=== PATIENT | male | born 1960 | race Caucasian/White ===

== ENCOUNTER → 2018-02-12 12:30 | Outpatient (CLI) | payer OTHER, SELFPAY ==
--- NOTE | 2018-02-12 12:33 | US_ITS ---
STUDY: ABDOMINAL ULTRASOUND -left UPPER QUADRANT REASON FOR VISIT: Male, 57 years old. History of mononucleosis. TECHNIQUE: Ultrasound evaluation of the left upper quadrant was performed with real-time and static armstrong-scale imaging. TECHNICAL QUALITY: Adequate. COMPARISON: None. FINDINGS: Spleen: The spleen measures 8.7 cm x 2.6 cm x 2.7 cm. It is of homogeneous echotexture. No focal abnormality is seen. Left Kidney: Normal size of the left kidney. The left kidney measures 10.6 cm x 5.75 x 5.4 cm. Normal renal cortex. The left cortex measures 1.3 cm. There is no demonstrated renal mass or cyst. There is no left hydronephrosis. US/Spleen IMPRESSION: Unremarkable ultrasound of the left upper quadrant. Electronically Signed: Daniel Albarran MD at 14:02 EDT Tel [phone], Service support ,
== END ==
PROVIDERS: Family Provider Internal Medicine; PCP Internal Medicine; Visit Provider Internal Medicine
DX: R16.1 Splenomegaly, not elsewhere classified (principal)
CPT/HCPCS: 76705

== ENCOUNTER → 2019-09-21 08:43 | Outpatient (CLI) | payer SELFPAY ==
[2019-09-21 08:43] VITALS: BMI 22.1
--- NOTE | 2019-09-21 08:50 | RAD_ITS ---
STUDY: X-RAY CHEST REASON FOR EXAM: Male, 59 years old. TB clearance. TECHNIQUE: Single AP portable view of the chest. COMPARISON: 09/29/2017. FINDINGS: The lungs are clear and expanded. There is no demonstrated pleural abnormality. Normal size heart. Normal mediastinum and sheree. Normal visualized pulmonary arteries. Normal visualized aortic arch and descending thoracic aorta. Normal visualized thoracic spine. There is degenerative osteoarthritis of the bilateral shoulders. Postoperative changes with 2 visualized fixation screws at the left humeral head. There is no demonstrated abnormality of the visualized soft tissue structures of the upper abdomen. RAD/Chest 1 View IMPRESSION: No acute cardiopulmonary disease. Electronically Signed: Yojana Van MD at 0:36 EDT , Service support ,
== END ==
PROVIDERS: Family Provider Internal Medicine; PCP Internal Medicine; Referring Provider Physician Assistant; Visit Provider Physician Assistant
DX: Z11.1 Encounter for screening for respiratory tuberculosis (principal)
CPT/HCPCS: 71045

== ENCOUNTER 2019-10-27 07:30 | Emergency (ER) | payer OTHER, SELFPAY ==
[2019-09-21 08:43] VITALS: BMI 22.1
[2019-10-27 07:31] VITALS: BP 155/97; PULSE 98; RESP 16; TEMP 37.1; O2SAT 98; BMI 22.7
[2019-10-27 07:34] VITALS: BP 155/97; PULSE 98; RESP 16; TEMP 37.1; O2SAT 98
--- NOTE | 2019-10-27 07:39 | RAD_ITS ---
STUDY: X-RAY CHEST REASON FOR EXAM: Male, 59 years old. Fever and chills TECHNIQUE: PA and lateral views of the chest. COMPARISON: 09/21/2019 FINDINGS: The lungs are clear and expanded. There is no demonstrated pleural abnormality. Normal size heart. Normal mediastinum and sheree. Normal visualized pulmonary arteries. Normal visualized aortic arch and descending thoracic aorta. Normal visualized thoracic spine. Normal visualized ribs, clavicles, and shoulders. There is no demonstrated abnormality of the visualized soft tissue structures of the upper abdomen. RAD/Chest PA and Lateral IMPRESSION: Normal x-ray examination of the chest. Electronically Signed: Waqar Alicea MD at 9:14 EST , Service support ,
--- NOTE | 2019-10-27 07:40 | ED.VIS.GEN ---
History of Present Illness Chief Complaint: Fever Informant: Patient Onset: Yesterday Context: Gradual Onset Timing: Continuous Current Severity: Moderate Maximum Severity: Moderate Narrative: The patient is a 59-year-old male who is otherwise healthy the presents to the emergency department with fever. The patient has had some upper respiratory symptoms for the past 2 weeks. He states he has had some nasal drainage and mild cough. He states that 2 days ago, he thought that he may been getting bronchitis. Today however, he has not had cough and was feeling improved. When he woke this morning, he had some chills and myalgias. 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 He states that he took his temperature at work and it was 100.5. He did take Motrin. He was exposed to adenovirus within the past week. Prior similar symptoms: No Recent Illness/Hospitalization: No Past Medical History - Allergies and Home Meds Allergies/Adverse Reactions: Allergies metoclopramide HCl [From Reglan] Allergy (Verified 10/27/19 07:33) Hives Primary Care Physician: Sommer Saunders DO [Primary Care Provider] - Prior records reviewed: Yes Past Medical History: None Surgical History: no surgical history Smoking Status: Current some day smoker Review of Systems General: Reports: Fever. Denies: Chills, Sweats Eyes: Denies: Visual changes - bilaterally, Diplopia ENT: Denies: Rhinorrhea, Sore throat Cardiovascular: Denies: Chest pain, Palpitations Respiratory: Reports: Cough. Denies: Dyspnea, Dyspnea on exertion Gastrointestinal: Denies: Abdominal pain, Nausea, Vomiting, Diarrhea, Melena, Hematochezia Genitourinary: Denies: Dysuria, Hematuria, Frequency Musculoskeletal: Denies: Back pain, Extremity Pain Skin: Denies: Rash, Wounds Neurological: Denies: Headache, Weakness, Numbness Physical Exam Vital Signs/Narrative: Vital Signs Temp Pulse Resp BP Pulse Ox 10/27/19 07:34 98.7 F 98 16 155/97 H 98 10/27/19 07:31 98.7 F 98 16 155/97 H 98 Inital Vital Signs reviewed: Yes General: Well nourished, Well developed, No Acute Distress Head: Normocephalic, Atraumatic Eyes: Perrl, EOMI ENT: Moist mucous membranes, No rhinorrhea Neck: Supple, Nontender Cardiovascular: Regular rate, Regular rhythm, No murmurs Respiratory: No distress, CTA bilaterally, Chest nontender Abdomen: Soft, Nontender, Nondistended, Normal bowel sounds Back: Nontender, Normal Inspection Extremities: Nontender, No edema Skin: Normal color, No rash Neurological: Alert, Oriented x3, Cranial nerves II-XII grossly intact, Normal Strength, Normal Sensation Psychological: Normal affect, Normal Mood Diagnostic/Tx/Re-eval Chest X-Ray - ED: 2 View, Read by ED Physician, Normal, Heart, Lungs, Mediastinum, Bony Structures - Medical Decision Making The patient has had upper respiratory symptoms for just over 2 weeks. Today, he had a fever. He is well-appearing. He is afebrile here. He has no hypoxia or tachypnea. His lungs are clear. Chest x-ray was obtained which does not show any focal infiltrative process. His influenza testing was also negative. Given the duration of his symptoms and the fact he now has fever, I am going to cover him for secondary bacterial cause. My suspicion is that this is likely a sinusitis. He will be started on Augmentin. I do feel that he is safe for outpatient therapy and he is comfortable with this plan of care. Impression 1. Acute sinusitis ED Disposition - Plan for ED Patient: Instructions: BRONCHITIS, Antiobiotic Treatment (Adult) Prescriptions: Amox/Clavulanate Tablet [Augmentin Tablet] 875 mg PO Q12H #20 tab Prescription Printed Referrals: Sommer Saunders DO [Primary Care Provider] -
[2019-10-27] MEDS: Amox/Clavulanate 875 MG Tablet PO (08:25)
== END 2019-10-27 08:26 | disposition home or self-care (01) ==
LOC: ED 07:45
PROVIDERS: Emergency Provider Emergency Medicine; Family Provider Internal Medicine; PCP Internal Medicine
DX: J01.90 Acute sinusitis, unspecified (principal); F17.200 Nicotine dependence, unspecified, uncomplicated; Z88.8 Allergy status to other drugs, medicaments and biological substances; Z79.82 Long term (current) use of aspirin
CPT/HCPCS: 71046; 87804; 99283

== ENCOUNTER 2020-07-03 08:16 | Observation (INO) | payer OTHER, SELFPAY ==
[2020-01-18 08:43] VITALS: BMI 22.7
[2020-07-03] VITALS (13 sets, daily range): BP systolic 120–163; BP diastolic 75–100; PULSE 64–171; RESP 16–18; TEMP 36.3–37; O2SAT 94–98; BMI 23.3; BMI 22.4; BMI 63.2
--- NOTE | 2020-07-03 08:38 | EKG12_ITS ---
Test Reason : PALPS Blood Pressure : / mmHG Vent. Rate : 115 BPM Atrial Rate : 115 BPM P-R Int : 132 ms QRS Dur : 082 ms QT Int : 308 ms P-R-T Axes : 069 067 039 degrees QTc Int : 426 ms Sinus tachycardia Possible Right atrial enlargement Borderline ECG Confirmed by KRISTIN COULTER, MATT ([id number]), subeditor BUZZ RADFORD ([id number]) on 07/09/2020 9:10:26 AM Referred By: DC Confirmed By:MATT FOSTER MD
[2020-07-03 08:46] LABS: Absolute Lymphocyte Count 2.09 X10^3/uL (0.83-4.51); Absolute Neutrophil Count 7.2 X10^3/uL (2.0-7.7); Basophil# 0.06 X10^3/uL; Basophil% 0.6 % (0-1); Eosinophil# 0.17 X10^3/uL; Eosinophils% 1.6 % (0-5); Hematocrit 52.7 % (40-54); Lymphocyte # 2.09 X10^3/ul (4.0); Lymphocyte % 19.3 % (19-41); Mean Corp Hgb Conc 36.2 g/dL (32-36); Mean Corpuscular Hgb 33.8 pg (27.0-32.0); Mean Corpuscular Volume 93.3 fL (80-94); Mean Platelet Vol. 9.1 fl (6.2-12.0); Monocyte# 1.25 X10^3/uL; Monocyte% 11.6 % (0-10); NRBC Flagged by Analyzer 0 % (0-5); Neutrophil # 7.19 X10^3/uL (2.7-7.7); Neutrophil % 66.4 % (47-70); Platelet Count 239 K/mm3 (150-450); RBC Distribution Width CV 14.2 % (11.6-14.6); RBC Distribution Width SD 48.3 fl (35.1-43.9); Red Blood Count 5.65 M/mm3 (4.6-6.2); White Blood Count 10.8 K/mm3 (4.4-11.0)
[2020-07-03 08:48] LABS: Hemoglobin 19.1 g/dL (13.0-16.5)
[2020-07-03 08:56] LABS: Partial Thromboplast Time 27.3 Seconds (24.1-36.2); Prothrombin Time (Protime)PT. 12.4 SECONDS (11.7-14.9)
[2020-07-03] MEDS: 0.9% Normal Saline 1,000 ML 1000 ML IV (08:56)
[2020-07-03] MEDS: Aspirin 81 MG TAB.CHEW 324 MG PO (08:57)
--- NOTE | 2020-07-03 09:00 | RAD_ITS ---
STUDY: X-RAY CHEST REASON FOR EXAM: Male, 60 years old. Chest pain, palpitations TECHNIQUE: Single AP portable view of the chest. COMPARISON: Comparison is made with prior examination dated 10/27/2019. FINDINGS: EKG electrodes are seen. The lungs are clear and expanded. There is no demonstrated pleural abnormality. Normal size heart. Normal mediastinum and sheree. Normal visualized pulmonary arteries. Normal visualized aortic arch and descending thoracic aorta. Normal visualized thoracic spine. Normal visualized ribs, clavicles, and shoulders. There is no demonstrated abnormality of the visualized soft tissue structures of the upper abdomen. RAD/Chest 1 View (Portable) IMPRESSION: Normal x-ray examination of the chest. Electronically Signed: Daniel Albarran, at 9:34 EDT , Service support ,
[2020-07-03 09:07] LABS: Anion Gap 7 (5-15); BUN 16 mg/dL (7-18); BUN/Creat Ratio 16.4 RATIO (10-20); Calcium,Total 9.2 mg/dL (8.5-10.1); Chloride 104 mmol/L (98-107); Creatinine, Serum 0.97 mg/dL (0.70-1.30); EST Glomerular Filtration Rate 84 mL/min (>60); Est Glom Filt Rate - Afr Amer 102 mL/min (>60); Estimated Creatinine Clearance 74.91 ml/min; Glucose 129 mg/dL (74-106); Magnesium 1.9 mg/dL (1.6-2.6); Potassium 4.3 mmol/L (3.5-5.1); Sodium Level 136 mmol/L (136-145); Thyroid Stim Hormone (TSH) 2.14 uIU/mL (0.358-3.74)
--- NOTE | 2020-07-03 09:46 | ED.DCSUM_ITS ---
- ER Visit Summary Date of Service: 07/03/20 Chief Complaint: Palpitations History of Present Illness: The patient is a 60 M who presents with palpitations that started at 6 AM. By the time I saw him, they had resolved. He had these months ago, but they had resolved after about 15 minutes. No other symptoms like chest pain or shortness of breath. He takes aspirin daily. He smokes cigars, but does not inhale. He uses erectile dysfunction medication, last use was last night. Physical Examination: Afebrile and vital signs unremarkable except for heart rate of 109. Heart is regular. Lungs clear. Abdomen soft. Skin normal. Test Results: EKG shows sinus tach at 115. Hemoglobin 19.1, glucose 129, coags and troponin normal. Magnesium and TSH normal. Chest x-ray normal. Emergency Department Course and Treatment: Patient was placed on a monitor. Treated with aspirin. Work-up as above was unremarkable. He was discussed with cardiology who advised admission for rule out, echo, and stress test. [facility] list [facility] contacted for further care. On reevaluation, the patient remains in sinus rhythm, normal rate, stable vitals. Treatment Plan: As above Disposition: PCU Impression: New onset atrial fibrillation This note was generated with [employer] dictation software. It may contain incorrect words, spelling, and punctuation that were not noted in review of the chart prior to signing ED Disposition - Plan for ED Patient: Referrals: Sommer Saunders DO [Primary Care Provider] -
--- NOTE | 2020-07-03 10:01 | PCM.HP.STD ---
Problem List (1) New onset A. fib with RVR Status: Acute (2) Tobacco abuse Status: Chronic History of Present Illness Date of Admission: 07/03/20 Chief Complaint: Palpitation, irregular heartbeats. The patient is a 60 year old M with no significant past medical history presented to the emergency room because of palpitation and irregular heartbeats. Symptoms started at 6 AM this morning after he woke up, felt that his heart is beating fast and irregular and he checked his pulse which was also fast and irregular and this was associated with not feeling well and fatigue. There was no aggravating or relieving factors. He mentioned that he took Viagra 25 mg last night. He went to work, continued to have this palpitation with irregular heartbeats and fatigue and he decided to come to the emergency department for evaluation. He denied associated shortness of breath, chest pain, dizziness, lightheadedness, syncope or presyncope. Upon arrival to the emergency department, patient went back into sinus rhythm with a heart rate of 110. He was in A. fib with RVR earlier. EKG revealed no acute segment changes. His routine blood work was remarkable for hemoglobin of 19.1, otherwise normal. Serum potassium and magnesium were normal. TSH was normal. Troponin was negative. Chest x-ray showed no acute findings. He is being admitted for new onset A. fib with RVR, converted back to sinus rhythm, for evaluation and treatment. Past Medical History Past Medical History (Chronic Problems): Chronic Problems (Last Updated 07/03/20 @ 10:[address] Edenilson Watts MD) Alcohol abuse (Chronic) Tobacco abuse (Chronic) Medical History: Medical History (Last Updated 07/03/20 @ 10:[address] Edenilson Watts MD) BPH (benign prostatic hyperplasia) N40.0 Erectile dysfunction N52.9 IBS (irritable bowel syndrome) K58.9 Psoriasis L40.9 Allergies metoclopramide HCl [From Reglan] Allergy (Verified 10/27/19 07:33) Hives Home Medications: Ambulatory Orders Medication Instructions Recorded aspirin 81 mg tablet,delayed 81 mg PO QDAY 11/24/17 release Surgical History: - - Ganglion cyst removal. Psychiatric History: No pertinent psych hx Lives: Spouse/ Significant Other Smoking Status: Current every day smoker Tobacco Use: Cigars Alcohol: Heavy Drugs: None - *Family History Maternal Family History: Family History (Last Reviewed 06/03/19 @ 10:23 by Faiza Cantu) Father CAD (coronary artery disease) Mother Diabetes History Items: - - Congestive heart failure. Paternal Family History: Family History (Last Reviewed 06/03/19 @ 10:23 by Faiza Cantu) Father CAD (coronary artery disease) Mother Diabetes History Items: Heart Disease, - - Father at age of 50 because of massive heart attack. Review of Systems Constitutional: Reports: Fatigue. Denies: Anorexia, Chills, Fever, Weakness Eyes: Denies: Blurred vision, Double vision, Drainage, Redness HEENT: Denies: Difficulty Hearing, Ear Pain, Eye Pain, Nasal Congestion, Sore Throat Cardiovascular: Reports: Palpitations. Denies: Chest Pain, Chest Pressure, Chest Tightness, Heaviness, Light Headedness, Syncope Respiratory: Denies: Cough, Hemoptysis, Pleuritic Pain, Shortness of Breath, Sputum production, Wheezing Gastrointestinal: Denies: Abdominal Pain, Constipation, Diarrhea, Nausea, Vomiting Genitourinary: Denies: Dysuria, Frequency, Hematuria Musculoskeletal: Denies: Arm Pain, Back Pain, Foot Pain Skin: Denies: Dryness, Rash Neurological: Denies: Balance problems, Blurred vision, Double vision, Change in Speech, Slurred speech, Confusion, Headaches, Incoordination, Numbness Psychiatric: Denies: Anxiety, Depression Endocrine: Denies: Change in Body Habitus, Polydipsia, Polyuria VTE Information - Inpt Only VTE Present on Admission: No VTE Mechan Device Prophylaxis: None VTE Pharm Prophylaxis ordered?: Yes Patient Problems: Active and Suspected Problems (Last Updated 07/03/20 @ 10:[address] Edenilson Watts MD) New onset A. fib with RVR (Acute) - Physical Exam Vitals/I&O's: Vital Signs Temp Pulse Resp BP Pulse Ox 97.4 F L 109 H 16 123/98 H 97 07/03/20 08:18 07/03/20 08:31 07/03/20 08:31 07/03/20 08:31 07/03/20 08:31 Oxygen Delivery Method Room Air Weight: 145 lb Body Mass Index (BMI) 23.3 General: Alert, Oriented x3, Cooperative, No apparent distress HEENT: Atraumatic, PERRLA, EOMI, Normocephalic Oral: Moist Mucosa, No Gingival or Mucosal Lesions/ Ulcerations Neck: Supple, No JVD, Negative Carotid Bruits, Trachea Midline, Thyroid Normal Size and Texture Lungs: Clear to auscultation, Normal air movement, No rhonchi, No wheeze, No rales Cardiovascular: Regular rate, Regular Rhythm, Normal S1, Normal S2, PMI Normal, Tachycardic Abdomen: Bowel Sounds Present, Soft, Non Tender, Non-Distended, No Hepato-splenomegaly Extremities: No clubbing, No cyanosis, No edema Skin: No rashes, No breakdown Lymphatic: No Cervical, Supraclavicular, or Inguinal Adenopathy Neurological: Cranial nerves II-XII grossly intact, Motor Exam 5/5 strength throughout Psych/Mental Status: Normal Affect, Appropriate, Alert and oriented to time, place, person, mood and affect Laboratory Results 07/03/20 08:29: WBC 10.8, RBC 5.65, Hgb 19.1 H*, Hct 52.7, MCV 93.3, MCH 33.8 H, MCHC 36.2 H, RDW Std Deviation 48.3 H, RDW Coeff of Maddi 14.2, Plt Count 239, MPV 9.1, Immature Gran % (Auto) 0.500, Neut % (Auto) 66.4, Lymph % (Auto) 19.3, [place] % (Auto) 11.6 H, Eos % (Auto) 1.6, Baso % (Auto) 0.6, Absolute Neuts (auto) 7.2, Absolute Lymphs (auto) 2.09, Nucleated RBC % 0, Diff Path Review March07/03/20 08:29: PT 12.4, INR 1.0, APTT 27.3 07/03/20 08:29: Sodium 136, Potassium 4.3, Chloride 104, Carbon Dioxide 25.0, Anion Gap 7, BUN 16, Creatinine 0.97, Estim Creat Clear Calc 74.91, Est GFR (MDRD) Af Amer 102, Est GFR (MDRD) Non-Af 84, BUN/Creatinine Ratio 16.4, Glucose 129 H, Calcium 9.2, Magnesium 1.9, Troponin I < 0.015, TSH 2.14 Clinical Impression(s) from Imaging Studies Chest X-Ray 07/03/20 09:00 IMPRESSION: Normal x-ray examination of the chest. Electronically Signed: Daniel Albarran, at 9:34 EDT , Service support , Assessment/Plan All Active Problems (Last Updated 07/03/20 @ 10:[address] Edenilson Watts MD) New onset A. fib with RVR (Acute) This is a 60 years old male patient presented to the emergency room because of palpitation and irregular heartbeats, found to have new onset A. fib with RVR and he is being admitted for evaluation. #1 new onset A. fib with RVR: Converted back to sinus rhythm, now in sinus tachycardia, heart rate has been in the 110s. EKG reviewed, no acute segment changes, troponin is negative. Patient is a heavy smoker, alcohol drinker and he has family history of premature CAD, father because of massive heart attack at age of 50. Serum potassium and magnesium were normal as well as TSH. His [id number] score for atrial fibrillation is 0, no indication for anticoagulation. Plan: Admit to PCU, cardiac monitoring, serial cardiac enzymes, 2D echocardiogram, start metoprolol 25 mg p.o. twice daily for rate control, start baby aspirin, fasting lipid profile, gentle IV fluids for hydration, nuclear stress test tomorrow morning if cardiac enzymes are negative, repeat CBC and BMP tomorrow morning. #2 polycythemia: Hemoglobin is 19.1 g/dL. No signs of dehydration. This likely due to chronic smoking and hypoxia. #3 tobacco abuse: NicoDerm patch if desired. #4 alcohol abuse: Patient drinks 3-4 beers every day. No evidence of alcohol withdrawal. Plan: Folic acid, thiamine, multivitamins. #5 DVT prophylaxis: Subcu Lovenox. This note was generated with [employer] dictation software. It may contain incorrect words, spelling, and punctuation that were not noted in checking the note before signing. Inpatient E&M: 01562 Init Hosp L2
--- NOTE | 2020-07-03 10:07 | NURSING ---
PCU NEW ONSET AFIB WITH RVR MILI
--- NOTE | 2020-07-03 10:51 | ECHOD_ITS ---
Reason For Study: AFIB Procedure This was a 2D Doppler, Color Flow transthoracic echocardiogram. The study was technically difficult. Exam performed portable in patient room. Left Ventricle Normal LV size. Left ventricular systolic function is normal. The estimated ejection fraction is 55 %. No evidence for diastolic dysfunction. No regional wall motion abnormalities noted. Right Ventricle Normal RV size. Normal systolic function. Atria Normal left atrium. Normal right atrium. No doppler evidence for ASD. Mitral Valve There is no mitral annular calcification. Mild diffuse mitral valve thickening. Mild (1+) mitral valve insufficiency. Tricuspid Valve Normal tricuspid valve. Mild tricuspid valve insufficiency. Right ventricular systolic pressure estimated to be 25 mmHg. Aortic Valve Trisinus/trileaflet aortic valve. Normal aortic valve. Pulmonic Valve The pulmonic valve is not well visualized. Great Vessels Normal sized aortic root. Pericardium/Pleural No pericardial effusion. MMode/2D Measurements & Calculations LVIDd: 4.1 cm IVSd: 1.2 cm Ao root diam: 3.3 cm LVIDs: 2.8 cm LVPWd: 1.2 cm RVDd: 4.0 cm FS: 32.3 % LAV(MOD-bp): 34.6 ml LVAd ap4: 26.4 cm2 SV(MOD-sp4): 46.3 ml LAV(MOD-bp) Indexed: 19.9 ml/m2 EDV(MOD-sp4): 73.6 ml LAV(MOD-sp2): 41.5 ml EDV(sp4-el): 77.4 ml LAV(MOD-sp4): 28.5 ml LVAs ap4: 14.3 cm2 ESV(MOD-sp4): 27.3 ml ESV(sp4-el): 28.0 ml EF(MOD-sp4): 62.9 % EF(sp4-el): 63.8 % SV(sp4-el): 49.3 ml LA A4 area: 12.5 cm2 LA dimension(2D): 3.0 cm RA A4 area: 13.0 cm2 Time Measurements MV dec time: 0.19 sec Doppler Measurements & Calculations MV E max henrique: 60.4 cm/sec Ao V2 max: 89.8 cm/sec LV V1 max: 76.3 cm/sec MV A max henrique: 57.2 cm/sec Ao max P.2 mmHg LV V1 max P.3 mmHg MV E/A: 1.1 PA V2 max: 73.0 cm/sec PI end-d henrique: 82.0 cm/sec TR max henrique: 234.5 cm/sec TR max P.1 mmHg Interpretation Summary The study was technically difficult. Left ventricular systolic function is normal. The estimated ejection fraction is 55 %. Mild diffuse mitral valve thickening. Mild (1+) mitral valve insufficiency. Mild tricuspid valve insufficiency. Right ventricular systolic pressure estimated to be 25 mmHg. No evidence for diastolic dysfunction. Ordering Physician: Edenilson Watts Referring Physician: INESSA ZHAO Performed By: Meri Her, RIVERA, RVT
[2020-07-03] MEDS: 0.9% Normal Saline 1,000 ML 76 ML IV (11:19)
[2020-07-03] MEDS: Metoprolol Tartrate 25 MG Tablet PO ×2 (11:22→21:17)
[2020-07-03] MEDS: Folic Acid 1 MG Tablet PO ×2 (11:22→16:23)
[2020-07-03 11:31] LABS: Cholesterol 213 mg/dL (200); High Density Lipoprotein 64 mg/dL; Triglycerides 68 mg/dL; Very Low Density Lipoprotein 14 mg/dL (5-40)
[2020-07-03] MEDS: Thiamine Hydrochloride 100 MG Tablet PO (16:23)
--- NOTE | 2020-07-03 17:42 | PCM.CONS.C ---
Problem List (1) New onset A. fib with RVR Status: Acute (2) Tobacco abuse Status: Chronic (3) Alcohol abuse Status: Chronic (4) Polycythemia Status: Acute Reason for Consult Date of Consultation: 07/03/20 History of Present Illness: The patient is a 60 year [id number] white male who is referred for evaluation of atrial fibrillation with rapid ventricular response. 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 He states he noted earlier today that his heartbeat did not feel right, it felt fast at times, and he did not feel well in general. He states that he eventually hooked himself up to a transfer car operator drier and then subsequently with his colleagues hooked himself up to the twelve-lead ECG. He was noted to be in atrial fibrillation with rapid ventricular response. He was eventually brought to [facility] emergency department for further evaluation and care. He notes he had spontaneously converted to sinus rhythm. During his episode he denied any ongoing chest discomfort other than the sensation of his heartbeats. He did not have any issues of acute shortness of breath or dyspnea. He has denied orthopnea or PND or peripheral pitting edema. There is been no near syncope or syncope. He states he had a similar episode in March of this year that lasted potentially 15 hours. He is not sure if he has had other episodes in the past. He states he has undergone noninvasive cardiovascular evaluation in the past which is been unremarkable. He had cardiac enzymes today which have remained negative thus far. His ECG demonstrated sinus rhythm. His ECGs he brought with him demonstrate atrial fibrillation with RVR. His chest x-ray was reported with no acute cardiopulmonary disease process. He has had a transthoracic echocardiogram performed. The results are as noted below. [] Past Medical History Allergies/Adverse Reactions: Allergies metoclopramide HCl [From Reglan] Allergy (Verified 10/27/19 07:33) Hives Home Medications: Ambulatory Orders Medication Instructions Recorded aspirin 81 mg tablet,delayed 81 mg PO DAILY 11/24/17 release Past Medical History (Chronic Problems): Chronic Problems (Last Updated 07/03/20 @ 10:[address] Edenilson Watts MD) Alcohol abuse (Chronic) Tobacco abuse (Chronic) Surgical History: - - Ganglion cyst removal. Psychiatric History: No pertinent psych hx - *Family History Maternal Family History: Family History (Last Reviewed 06/03/19 @ 10:23 by Faiza Cantu) Father CAD (coronary artery disease) Mother Diabetes History Items: - - Congestive heart failure. Paternal Family History: Family History (Last Reviewed 06/03/19 @ 10:23 by Faiza Cantu) Father CAD (coronary artery disease) Mother Diabetes History Items: Heart Disease, - - Father at age of 50 because of massive heart attack. Lives: Spouse/ Significant Other Smoking Status: Current every day smoker Tobacco Use: Cigars Alcohol: Heavy Drugs: None Review of Systems - Review of Systems General: Denies: Fever, Night Sweats, Fatigue Cardiovascular: Reports: Palpitations. Denies: Chest Discomfort, Shortness of Breath, Orthopnea, PND, Peripheral Edema, Lightheadedness, Dizziness, Near Syncope, Syncope Respiratory: Denies: Cough, Sputum Production, Hemoptysis Gastrointestinal: Denies: Hematemesis, Hematochezia, Melena Genitourinary: Denies: Dysuria, Hematuria Subjectve: Is a 60-year-old white male appears resting comfortably at the moment in no acute distress. Objective: Vital Signs Temp Pulse Resp BP Pulse Ox 98.4 F 64 16 120/75 94 07/03/20 14:49 07/03/20 15:24 07/03/20 14:49 07/03/20 14:49 07/03/20 15:36 Oxygen Delivery Method Room Air Weight: 139 lb 5.314 oz Body Mass Index (BMI) 22.4 Intake and Output for Last 24 Hours 07/01/20 07/02/20 07/03/20 23:59 23:59 23:59 Intake Total 1250 / 1250 Balance 1250 / 1250 General: Awake, Alert, Oriented x 3, Cooperative, No Acute Distress HEENT: Atraumatic, Normocephalic, PERRL, EOMI, Sclera Non Icteric Neck: Supple, Good ROM, No JVD Lungs: Clear to auscultation Cardiovascular: Regular Rhythm, Normal S1, Normal S2 Vascular: No Carotid Bruits Abdomen: Bowel Sounds Present, Soft Extremities: No edema Neurological: No Focal Motor or Sensory Deficit Psych/Mental Status: Appropriate 07/03/20 08:29: WBC 10.8, RBC 5.65, Hgb 19.1 H*, Hct 52.7, MCV 93.3, MCH 33.8 H, MCHC 36.2 H, Plt Count 239, MPV 9.1, Immature Gran % (Auto) 0.500, Neut % (Auto) 66.4, Lymph % (Auto) 19.3, [place] % (Auto) 11.6 H, Eos % (Auto) 1.6, Baso % (Auto) 0.6, Absolute Neuts (auto) 7.2, Nucleated RBC % 0 07/03/20 08:29: PT 12.4, INR 1.0, APTT 27.3 07/03/20 08:29: Sodium 136, Potassium 4.3, Chloride 104, Carbon Dioxide 25.0, Anion Gap 7, BUN 16, Creatinine 0.97, Est GFR (MDRD) Af Amer 102, Est GFR (MDRD) Non-Af 84, BUN/Creatinine Ratio 16.4, Glucose 129 H, Calcium 9.2, Magnesium 1.9, Troponin I < 0.015 07/03/20 08:29: Triglycerides 68, Cholesterol 213 H, LDL Cholesterol 135 H, VLDL Cholesterol 14, HDL Cholesterol 64 07/03/20 11:48: Troponin I < 0.015 07/03/20 15:10: Troponin I < 0.015 Rhythm: Sinus rhythm EKG: As noted above ECHO: Interpretation Summary The study was technically difficult. Left ventricular systolic function is normal. The estimated ejection fraction is 55 %. Mild diffuse mitral valve thickening. Mild (1+) mitral valve insufficiency. Mild tricuspid valve insufficiency. Right ventricular systolic pressure estimated to be 25 mmHg. No evidence for diastolic dysfunction. Stress Test: 10-19-2017 Stress Test Report: Exercise myocardial perfusion stress test 57-year-old man with a history of chest pain. Medications Wellbutrin aspirin. Stress protocol: The EKG demonstrates normal sinus rhythm with a rate of 76 bpm. Resting blood pressure is 126/72 mmHg. The patient exercised according to the regular Barry protocol for total duration of 12 minutes completing stage IV of the Barry protocol. The maximum heart rate attained was 181 bpm which was 109% of the maximum predicted heart rate. Maximum workload attained was 13.4 metabolic equivalents. At rest there were no ST or T-wave changes noted suggest ischemia and at peak exercise upsloping ST changes only were noted would not be the criteria for ischemia. The resting blood pressure is 126/72 mmHg and a peak blood pressure 184/78 mmHg. No clinical angina was noted. Cardial perfusion protocol: 11.2 mCi of technetium 99m sestamibi was injected at rest. The patient exercised according to the regular Barry protocol for total duration of 12 minutes attaining a heart rate of 181 bpm. The maximum workload attained was 13.4 metabolic equivalents at peak exercise 33.5 mCi of technetium 99m sestamibi was injected. Stress images were obtained. Stress and rest images were reconstructed and compared in the short axis vertical long and horizontal long axis. Gated images were also obtained. Perfusion SPECT analysis: Review of the images demonstrate normal uptake of tracer noted in all areas myocardium on the stress images. The resting images similarly demonstrate normal uptake of tracer noted varus myocardium. No areas of reversibility are noted suggest ischemia no previous infarct is noted. Gated SPECT analysis: The gated ejection fraction is noted to be 64%. Conclusion: Normal exercise myocardial perfusion stress test with no evidence of ischemia at a high workload. Excellent functional capacity. Preserved ejection fraction. CXR: Preliminary evaluation: No acute cardiopulmonary Z's process appreciated: Please see official report Assessment/Plan 1. Atrial fibrillation with rapid ventricular response At the present time the etiology is uncertain. There may be a concern as to whether this could be related to the patient's underlying nicotine use or alcohol use. Thus far has not been found to have other definitive etiologies. The present time he is being monitored. He is remained in sinus rhythm. His cardiac enzymes have been negative thus far. His echocardiogram is as noted. He will undergo reassessment of his cardiovascular status with an exercise tolerance test/imaging study. Depending upon the findings he may or may not need further cardiac diagnostic studies such as cardiac catheterization, etc. He may need medical management going forward. It may include some form of rate control therapy as well as anti-coagulant therapy and potentially an antiarrhythmic which may depend upon the results of his noninvasive studies as to which antiarrhythmic he may be a candidate for either to be on sustained or to be used as a pill in the pocket formula. 2. Nicotine use He has been counseled on the importance of avoiding nicotine intake. 3. Alcohol use He does claim he drinks a few beers per day. He has been counseled on the importance of avoiding alcohol as it may be contributing factor to his atrial dysrhythmia. 4. Polycythemia The patient's hemoglobin level is elevated. At the moment, based upon his initial H&P, there is concern this could be related to his nicotine use. Depending upon his clinical course he may need this further evaluated by hematology, etc. Comment: The patient's case has been discussed and reviewed with the patient and previously with the [facility] emergency department staff. This note was generated using a voice recognition system and there may be incorrect words, spelling or punctuation that were not noted when reviewing the office note prior to saving.
[2020-07-03] MEDS: MELATONIN 3 MG TABLET 6 MG PO (23:31)
[2020-07-04] VITALS (9 sets, daily range): BP systolic 108–133; BP diastolic 72–85; PULSE 57–65; RESP 16–18; TEMP 36.7–37; O2SAT 93–98
[2020-07-04 06:22] LABS: Absolute Lymphocyte Count 2.24 X10^3/uL (0.83-4.51); Absolute Neutrophil Count 5.9 X10^3/uL (2.0-7.7); Basophil# 0.03 X10^3/uL; Basophil% 0.3 % (0-1); Eosinophil# 0.32 X10^3/uL; Eosinophils% 3.4 % (0-5); Hemoglobin 17.4 g/dL (13.0-16.5); Lymphocyte # 2.24 X10^3/ul (4.0); Mean Corp Hgb Conc 35.5 g/dL (32-36); Mean Corpuscular Hgb 33.9 pg (27.0-32.0); Mean Corpuscular Volume 95.5 fL (80-94); Mean Platelet Vol. 9.4 fl (6.2-12.0); Monocyte# 0.77 X10^3/uL; Monocyte% 8.3 % (0-10); NRBC Flagged by Analyzer 0 % (0-5); Neutrophil # 5.94 X10^3/uL (2.7-7.7); Neutrophil % 63.7 % (47-70); Platelet Count 220 K/mm3 (150-450); RBC Distribution Width CV 14.6 % (11.6-14.6); RBC Distribution Width SD 51.5 fl (35.1-43.9); Red Blood Count 5.13 M/mm3 (4.6-6.2); White Blood Count 9.3 K/mm3 (4.4-11.0)
[2020-07-04 06:37] LABS: Anion Gap 4 (5-15); BUN 15 mg/dL (7-18); BUN/Creat Ratio 17.8 RATIO (10-20); Calcium,Total 8.5 mg/dL (8.5-10.1); Chloride 108 mmol/L (98-107); Creatinine, Serum 0.84 mg/dL (0.70-1.30); EST Glomerular Filtration Rate 99 mL/min (>60); Est Glom Filt Rate - Afr Amer 120 mL/min (>60); Estimated Creatinine Clearance 85.69 ml/min; Glucose 89 mg/dL (74-106); Sodium Level 138 mmol/L (136-145)
[2020-07-04] MEDS: Aspirin 81 MG TAB.CHEW PO (06:48)
[2020-07-04] MEDS: Metoprolol Tartrate 25 MG Tablet PO (10:35)
[2020-07-04] MEDS: Folic Acid 1 MG Tablet PO (10:35)
[2020-07-04] MEDS: Multivitamins,Therapeutic Tablet 1 TABLET PO (10:35)
--- NOTE | 2020-07-04 12:15 | CASEMGMT ---
Addendum entered by Denia Gilbert 07/04/20 12:22: Pt has activated Eliquis card. Call placed to [facility] to apply Eliquis savings card. Per Dariela, pharmacist @ [facility], she attempted to apply the Eliquis savings card, but states d/t pt has insurance already and it will not allow her to apply the savings card. She states cost of medication will be $15 through pt's insurance. Pt made aware. Original Note: RN CM SWEAT BAND SEWER CM to room to meet with patient for initial transition planning/care coordination assessment. RN CM introduced self and role at [facility]. Pt voices understanding and consents to assessment at this time. Pt sitting up in room in chair in no distress at this time. Pt is A/O at this time and answers all questions appropriately. Care providers, pharmacy, and demographics verified/updated at this time. PCP: Dr Saunders Specialists: None Preferred Pharmacy: [facility] [place] Insurance: [employer] Prescription Benefit: Yes. Eliquis has been e-scribed to [facility]. Pt given Eliquis card and instructions on activating it. CM to follow for cost of Eliquis once card has been activated/applied. Living Will/HPOA: Pt is not sure if he has completed these. He states he does not want to talk to at this time, as he would like to check into this to see if he has done them already. Pt made aware that he can contact as an out-pt and make appt in the future if he decides he would like to talk with someone about this or would like to utilize [facility] social work for advanced directive completion. Given Dietetic Intern [employer] card with information and contact number. Pt expresses understanding. LNOK: , Rashmi Living Arrangements: Lives w/his and 8-yr-old son in one-story home w/3 steps to enter. Independent. Transportation: Pt states drives self and states no transportation concerns at this time. also drives DME: Denies using any DME and denies needs. HHC/SNF: No history of either. Denies needs and no needs identified. Pt wishes to return home and states has no concerns with going home at time of discharge. Pt drinks about 3-4 beers a day and states he plans on quitting on his own, but he is open to providing resources. Brisa AGUILAR, made aware. CM to follow for any further discharge planning/needs. Pt voices no further concerns/needs at this time. Advised pt to ask for CM if any further questions/concerns/needs arise. Voices understanding. PLAN: Home on Eliquis. CM to follow for cost of Eliquis once card has been activated/applied. for ETOH resources. Phillip BSN RN CM
--- NOTE | 2020-07-04 12:21 | CASEMGMT ---
Per RN CM patient was open to resources to help him quit drinking. SW spoke with patient, introduced self and role at [facility]. SW gave him a packet of resources. Brisa SANTANA MSW
--- NOTE | 2020-07-04 13:19 | STRESSREP_ITS ---
Stress Test Report Date: Procedure: Exercise tolerance test/imaging study Indications: Atrial fibrillation Consent: Per the patient Procedure: The patient exercised on a Barry protocol for 12 minutes completing Stage IV achieving a peak heart rate of 164 bpm (101 % predicted maximal heart rate) with a peak blood pressure 220/90 mmHg and a peak MET capacity of 13 METs. The baseline ECG demonstrated normal sinus rhythm. The peak exercise ECG demonstrated no obvious ECG changes. There were no cardiac dysrhythmias pretest, during exercise, or recovery. The functional capacity was considered good. There was no complaint of chest discomfort during exercise or recovery. The examination was discontinued secondary to dyspnea. Impression: 1. Technically adequate (percent predicted maximal heart rate greater than 85%) exercise tolerance test 2. Peak exercise ECG with no obvious ECG changes 3. There were no cardiac dysrhythmias pretest, during exercise, or recovery 4. Nuclear images pending Myocardial perfusion imaging study: Technique: The patient was injected with 10.5 mCi of technetium 99m Cardiolite and subsequently rest SPECT Cardiolite nuclear imaging was obtained in the horizontal long, vertical long, and short axis views. The patient exercised on a Barry protocol for 12 minutes completing Stage IV achieving a peak heart rate of 164 bpm (101 % predicted maximal heart rate) with a peak blood pressure 220/90 mmHg and a peak MET capacity of 13 METs. The patient was injected with 31.2 mCi of technetium 99m Cardiolite and subsequently stress SPECT Cardiolite nuclear imaging was obtained in the horizontal long, vertical long, and short axis views. A gated Cardiolite study at peak stress was obtained. Interpretation: Rest and stress SPECT Cardiolite nuclear imaging status post realignment, normalization, and attenuation correction, demonstrates the appearance of relative uniform tracer uptake and myocardial perfusion appearing within normal limits. There is end systolic thickening and brightening. The gated Cardiolite study demonstrates myocardial thickening and inward wall motion. The reported LVEF is 65 %. Impression: 1. Rest and stress SPECT Cardiolite nuclear imaging demonstrate relative uniform tracer uptake and myocardial perfusion appearing within normal limits. 2. The gated Cardiolite study reports an LVEF of 65 %. This note was generated with [employer] software. It may contain incorrect words, spelling, and punctuation that were not noted in checking the note before signing.
--- NOTE | 2020-07-04 13:33 | DCINST_ITS ---
- Discharge Diagnoses Current Active Problems: Current Active and Chronic Problems (Last Updated 07/03/20 @ 10:[address] Edenilson Watts MD) Polycythemia (Acute) Alcohol abuse (Chronic) New onset A. fib with RVR (Acute) Tobacco abuse (Chronic) You will use the following diet at home:: Regular Your food should be the consistency of: Regular Discharge Activity: Return to Normal Activity Weight Bearing Status: Full weight bearing Call your doctor if you observe: Fever of 101 or Higher, Shortness of breath, Dizziness, Fainting spells, Chest pain, Increased palpitations (irregular heartbeat) Instructions: Flecainide Acetate Oral tablet, Atrial Fibrillation, Apixaban Oral tablet Allergies/Adverse Reactions: Allergies metoclopramide HCl [From Reglan] Allergy (Verified 10/27/19 07:33) Hives Medications to take at Discharge Apixaban [Eliquis] 5 mg PO BID #90 tab 07/04/20 Diltiazem CD [Cardizem CD] 120 mg PO DAILY #30 cap 07/04/20 Flecainide [Tambocor] 300 mg PO PRN PRN #1 tab 07/04/20 The following prescriptions were given: Diltiazem CD [Cardizem CD] 120 mg PO DAILY #30 cap Transmission Status: Received by [id number] Apixaban [Eliquis] 5 mg PO BID #90 tab Transmission Status: Received by [id number] Flecainide [Tambocor] 300 mg PO PRN PRN #1 tab PRN Reason: Palpitations/irregular heartbe Prescription Printed Primary Care Physician: Sommer Saunders DO [Primary Care Provider] - Please follow up with your Primary Care Physician in: 2-4 weeks. Test Results: Test results from this visit will be discussed in further detail at your follow- up appointment, if applicable. Please Follow Up With: Abhijit Seals MD When: 2-3 weeks.
--- NOTE | 2020-07-04 13:35 | PCM.DC.SUM ---
Discharge Date and Diagnosis - Problem List Patient Problems: Active and Suspected Problems (Last Updated 07/03/20 @ 10:[address] Edenilson Watts MD) Polycythemia (Acute) New onset A. fib with RVR (Acute) Date of Admission: 07/03/20 Date of Discharge: 07/04/20 - Primary Discharge Diagnosis Acute Problems: Active Problems (Last Updated 07/03/20 @ 10:[address] Edenilson Watts MD) #1 new onset atrial fibrillation with RVR, converted back to sinus rhythm. #2 polycythemia, attributed to chronic smoking. #3 alcohol abuse. - Secondary Discharge Diagnosis Chronic Problems: Chronic Problems (Last Updated 07/03/20 @ 10:[address] Edenilson Watts MD) Alcohol abuse (Chronic) Tobacco abuse (Chronic) Hospital Course and Treatment Imaging Results: 07/04/20 05:55 Nuclear Stress Test - Treadmil [NM] AM (NON MEDS) Clinical Impression(s) from Imaging Studies Chest X-Ray 07/03/20 09:00 IMPRESSION: Normal x-ray examination of the chest. Electronically Signed: Daniel Deion, at 9:34 EDT , Service support , Dr. Seals, cardiology. Operations: None Procedures: 2-D Echocardiogram, EKG, Stress test Summary of Care Provided: Patient seen and examined on the day of discharge and appeared to be stable to be discharged home. He converted back to sinus rhythm, heart rate remained stable. He has no more symptoms of palpitation or irregular heartbeats. His vital signs are stable. The patient is a 60 year old M presented to the emergency room because of palpitation and irregular heartbeats. He was found to be in A. fib with RVR which is new to him. Upon arrival to the emergency department, patient converted back to sinus tachycardia. He had no history of cardiac disease. His EKG revealed normal sinus rhythm without evidence of acute ischemic changes. Troponin was negative x3. His routine blood work was remarkable for hemoglobin of 19.1 which is attributed to chronic smoking and it came down to 17.4 g/dL with IV fluids. Serum magnesium, potassium, calcium were normal. TSH was normal. Chest x-ray showed no acute findings. 2D echocardiogram revealed normal LV size and function, ejection fraction was 55%. Cardiology consulted and recommended nuclear stress test. Nuclear stress test performed and revealed no evidence of stress-induced myocardial ischemia, ejection fraction was 65%. Patient was treated with aspirin and beta-blockers. Cardiology recommended to start patient on Eliquis for anticoagulation to switch him to Cardizem CD 120 mg p.o. daily for rate control. Also cardiology recommended to give patient a prescription for flecainide, instructed patient to come to the emergency department if he develops similar symptoms of palpitation and irregular heartbeats and to take flecainide in the emergency department and to be monitored for cardiac arrhythmias. Patient discharged home in a stable medical condition, discharged on Eliquis for anticoagulation, Cardizem CD 120 mg p.o. daily for rate control, prescription for flecainide 300 mg p.o. for 1 tablet given to the patient, instructed to come to the emergency department as mentioned above and to take flecainide in the emergency department and to be monitored for cardiac arrhythmias, plan to follow-up with cardiology in 2 to 3 weeks, follow-up with PCP in 3 to 4 weeks. Patient Problems: Active and Suspected Problems (Last Updated 07/03/20 @ 10:[address] Edenilson Watts MD) Polycythemia (Acute) New onset A. fib with RVR (Acute) - Physical Exam Vitals/I&O's: Vital Signs Temp Pulse Resp BP Pulse Ox 98.1 F 60 18 108/72 98 07/04/20 10:30 07/04/20 11:00 07/04/20 10:30 07/04/20 10:35 07/04/20 10:30 Oxygen Delivery Method Room Air Weight: 139 lb 5.314 oz Body Mass Index (BMI) 22.4 Intake and Output for Last 24 Hours 07/02/20 07/03/20 07/04/20 23:59 23:59 23:59 Intake Total 1939 1440 / 1440 Balance 1939 1440 / 1440 General: Alert, Oriented x3, Cooperative, No apparent distress HEENT: Atraumatic, PERRLA, EOMI, Normocephalic Oral: Moist Mucosa, No Gingival or Mucosal Lesions/ Ulcerations Neck: Supple, No JVD, Negative Carotid Bruits, Trachea Midline, Thyroid Normal Size and Texture Lungs: Clear to auscultation, Normal air movement, No rhonchi, No wheeze, No rales Cardiovascular: Regular rate, Regular Rhythm, Normal S1, Normal S2, PMI Normal Abdomen: Bowel Sounds Present, Soft, Non Tender, Non-Distended, No Hepato-splenomegaly Extremities: No clubbing, No cyanosis, No edema Skin: No rashes, No breakdown Lymphatic: No Cervical, Supraclavicular, or Inguinal Adenopathy Neurological: Cranial nerves II-XII grossly intact, Neuro grossly intact Psych/Mental Status: Normal Affect, Appropriate Laboratory Results 07/03/20 15:10: Troponin I < 0.015 07/04/20 05:40: WBC 9.3, RBC 5.13, Hgb 17.4 H, Hct 49.0, MCV 95.5 H, MCH 33.9 H, MCHC 35.5, RDW Std Deviation 51.5 H, RDW Coeff of Madid 14.6, Plt Count 220, MPV 9.4, Immature Gran % (Auto) 0.300, Neut % (Auto) 63.7, Lymph % (Auto) 24.0, Fergus % (Auto) 8.3, Eos % (Auto) 3.4, Baso % (Auto) 0.3, Absolute Neuts (auto) 5.9, Absolute Lymphs (auto) 2.24, Nucleated RBC % 0 07/04/20 05:40: Sodium 138, Potassium 4.0, Chloride 108 H, Carbon Dioxide 26.0, Anion Gap 4 L, BUN 15, Creatinine 0.84, Estim Creat Clear Calc 85.69, Est GFR (MDRD) Af Amer 120, Est GFR (MDRD) Non-Af 99, BUN/Creatinine Ratio 17.8, Glucose 89, Calcium 8.5 Current Medications Acetaminophen (Tylenol) 650 mg PO Q6H PRN PRN PRN Reason: Pain Score 1-10/Temp > 100.7 F Aspirin (Aspirin, Baby) 81 mg PO DAILY@0800 [facility] Last Admin: 07/04/20 06:48 Dose: 81 mg Documented by: Enoxaparin Sodium (Lovenox) 40 mg SC DAILY [facility] Last Admin: 07/04/20 10:36 Dose: Not Given Documented by: [facility]) [facility] Last Admin: 07/04/20 10:35 Dose: 1 mg Documented by: Melatonin (Melatonin) 6 mg PO QHS PRN PRN PRN Reason: SLEEP Last Admin: 07/03/20 23:31 Dose: 6 mg Documented by: Metoprolol Tartrate (Lopressor (Beta Michele)) 25 mg PO BID [facility] Last Admin: 07/04/20 10:35 Dose: 25 mg Documented by: Multivitamins (Multivitamin) [facility] Last Admin: 07/04/20 10:35 Dose: 1 tablet Documented by: Ondansetron HCl (Zofran) 4 mg IV Q8H PRN PRN PRN Reason: NAUSEA/VOMITING Thiamine HCl (Vitamin B1) [facility] Last Admin: 07/04/20 10:36 Dose: Not Given Documented by: Zolpidem Tartrate (Ambien (Generic)) 5 mg PO QHS PRN PRN PRN Reason: INSOMNIA Discharge Activity: Return to Normal Activity Weight Bearing Status: Full weight bearing Call your doctor if you observe: Fever of 101 or Higher, Shortness of breath, Dizziness, Fainting spells, Chest pain, Increased palpitations (irregular heartbeat) Home Medications: Medications to take at Discharge Apixaban [Eliquis] 5 mg PO BID #90 tab 07/04/20 Diltiazem CD [Cardizem CD] 120 mg PO DAILY #30 cap 07/04/20 Flecainide [Tambocor] 300 mg PO PRN PRN #1 tab 07/04/20 Following Prescriptions Were Given to Patient: Diltiazem CD [Cardizem CD] 120 mg PO DAILY #30 cap Transmission Status: Received by [id number] Apixaban [Eliquis] 5 mg PO BID #90 tab Transmission Status: Received by [id number] Flecainide [Tambocor] 300 mg PO PRN PRN #1 tab PRN Reason: Palpitations/irregular heartbe Prescription Printed Primary Care Physician: Sommer Saunders DO [Primary Care Provider] - Please follow up with your Primary Care Physician in: 2-4 weeks. Please Follow Up With: Abhijit Seals MD When: 2-3 weeks. Patient Instructions: Apixaban Oral tablet, Flecainide Acetate Oral tablet, Atrial Fibrillation Disposition: Home Minutes spent on discharge:: 32 Patient Condition:: Stable Medical Necessity - Tobacco Use Smoking Status: Current every day smoker Tobacco Use: Cigars Meaningful Use Info Meaningful Use Diagnoses (Choose all that apply): None applicable Inpatient E&M: 73984 Disch Hosp
--- NOTE | 2020-07-04 14:23 | PCM.PN.CARD ---
Subjectve: The patient was evaluated earlier this day. He appeared to be doing well with no new acute concerns. Objective: Vital Signs Temp Pulse Resp BP Pulse Ox 98.1 F 64 18 108/72 98 07/04/20 13:38 07/04/20 13:38 07/04/20 13:38 07/04/20 13:38 07/04/20 13:38 Oxygen Delivery Method Room Air Weight: 139 lb 5.314 oz Body Mass Index (BMI) 22.4 Intake and Output for Last 24 Hours 07/02/20 07/03/20 07/04/20 23:59 23:59 23:59 Intake Total 1939 1440 / 1440 Balance 1939 1440 / 1440 General: Awake, Alert, Oriented x 3, Cooperative, No Acute Distress Lungs: Clear to auscultation Cardiovascular: Regular Rhythm, Normal S1, Normal S2 Abdomen: Bowel Sounds Present, Soft Extremities: No edema Psych/Mental Status: Appropriate 07/03/20 15:10: Troponin I < 0.015 07/04/20 05:40: WBC 9.3, RBC 5.13, Hgb 17.4 H, Hct 49.0, MCV 95.5 H, MCH 33.9 H, MCHC 35.5, Plt Count 220, MPV 9.4, Immature Gran % (Auto) 0.300, Neut % (Auto) 63.7, Lymph % (Auto) 24.0, Teller % (Auto) 8.3, Eos % (Auto) 3.4, Baso % (Auto) 0.3, Absolute Neuts (auto) 5.9, Nucleated RBC % 0 07/04/20 05:40: Sodium 138, Potassium 4.0, Chloride 108 H, Carbon Dioxide 26.0, Anion Gap 4 L, BUN 15, Creatinine 0.84, Est GFR (MDRD) Af Amer 120, Est GFR (MDRD) Non-Af 99, BUN/Creatinine Ratio 17.8, Glucose 89, Calcium 8.5 Rhythm: Sinus rhythm Medical Necessity - Tobacco Use Smoking Status: Current every day smoker Tobacco Use: Cigars Assessment/Plan 1. Atrial fibrillation with rapid ventricular response At the present time the etiology is uncertain. There may be a concern as to whether this could be related to the patient's underlying nicotine use or alcohol use. Thus far has not been found to have other definitive etiologies. The present time he is being monitored. He is remained in sinus rhythm. His cardiac enzymes have been negative thus far. His echocardiogram is as noted. He has undergone evaluation with an exercise tolerance test. This was considered negative. At the present time he will continue medical therapy. This will include rate limiting therapy with diltiazem CD 120 mg daily, initiation of anticoagulant therapy with apixaban/Eliquis, and initiation of a pill in the pocket antiarrhythmic therapy with flecainide/Tambocor at (as his exercise tolerance test/imaging study is negative for evidence of myocardial ischemia or previous myocardial injury/infarction) at 300 mg q. event as needed with the first time use presenting to [facility] emergency department to take the tablet and be monitored after the tablet for any obvious adverse events. Will need continued outpatient cardiovascular follow-up as well. 2. Nicotine use He has been counseled on the importance of avoiding nicotine intake. 3. Alcohol use He does claim he drinks a few beers per day. He has been counseled on the importance of avoiding alcohol as it may be contributing factor to his atrial dysrhythmia. 4. Polycythemia The patient's hemoglobin level is elevated. At the moment, based upon his initial H&P, there is concern this could be related to his nicotine use. Depending upon his clinical course he may need this further evaluated by hematology, etc. Comment: The patient's case has been discussed and reviewed with the patient and previously and with Dr. Watts. This note was generated using a voice recognition system and there may be incorrect words, spelling or punctuation that were not noted when reviewing the office note prior to saving.
--- NOTE | 2020-07-04 14:29 | PHA.DC.MC ---
Pharmacy Service has performed discharge medication reconciliation and counseling for this patient. 1. APIXABAN 5MG PO BID 2. DILTIAZEM CD 120MG PO DAILY 3. FLECAINIDE 300MG PO X1 PRN The patient's discharge medication list was reviewed for discrepancies and discrepancies were resolved. Home Medications Apixaban [Eliquis] 5 mg PO BID #90 tab 07/04/20 Diltiazem CD [Cardizem CD] 120 mg PO DAILY #30 cap 07/04/20 Flecainide [Tambocor] 300 mg PO PRN PRN #1 tab 07/04/20 The patient was counseled on the following discharge medications and changes in medications for homegoing were reviewed. The Reason for Use, instructions for use, and potential side effects were reviewed for all new medications. The patient's questions regarding all of their medications were answered. The patient was able to verbally demonstrate an understanding of their discharge medications. Patient counseled by clinical pharmacy specialistJorge.
[2020-07-05 12:06] LABS: Pathologist Review Reviewed
== END 2020-07-04 14:29 | disposition home or self-care (01) ==
LOC: ED 09:19 → PCU 07-04 08:57
PROVIDERS: Admitting Provider Hospitalist; Emergency Provider Emergency Medicine; PCP Internal Medicine; Visit Provider Hospitalist
DX: I48.91 Unspecified atrial fibrillation (principal); F17.290 Nicotine dependence, other tobacco product, uncomplicated; Z79.82 Long term (current) use of aspirin; N52.9 Male erectile dysfunction, unspecified; F10.10 Alcohol abuse, uncomplicated; L40.9 Psoriasis, unspecified; N40.0 Benign prostatic hyperplasia without lower urinary tract symptoms; D75.1 Secondary polycythemia; I08.1 Rheumatic disorders of both mitral and tricuspid valves; R00.0 Tachycardia, unspecified
CPT/HCPCS: 36415; 71045; 78452; 80048; 80061; 83735; 84443; 84484; 85025; 85610; 85730; 93005; 93017; 93306; 96360; 96361; 99218; 99285; 99406; A9500; J7030; A4216; G0378

== ENCOUNTER → 2020-12-27 11:45 | Outpatient (CLI) | payer OTHER, SELFPAY ==
[2020-11-21 12:57] VITALS: BMI 22.5
== END ==
PROVIDERS: PCP Internal Medicine; Visit Provider Physician Assistant Medical
DX: R06.00 Dyspnea, unspecified (principal)
CPT/HCPCS: 95806

== ENCOUNTER 2021-12-13 14:58 | Outpatient (CLI) | payer OTHER, SELFPAY ==
[2021-12-13 17:32] LABS: Absolute Lymphocyte Count 2.01 X10^3/uL (0.83-4.51); Absolute Neutrophil Count 5.5 X10^3/uL (2.0-7.7); Basophil# 0.05 X10^3/uL; Basophil% 0.6 % (0-1); Eosinophil# 0.12 X10^3/uL; Eosinophils% 1.4 % (0-5); Hematocrit 43.3 % (40-54); Hemoglobin 15.2 g/dL (13.0-16.5); Lymphocyte # 2.01 X10^3/ul (0.83-4.51); Lymphocyte % 23.5 % (19-41); Mean Corp Hgb Conc 35.1 g/dL (32-36); Mean Corpuscular Hgb 33.5 pg (27.0-32.0); Mean Corpuscular Volume 95.4 fL (80-94); Mean Platelet Vol. 9.4 fl (6.2-12.0); Monocyte# 0.88 X10^3/uL; Monocyte% 10.3 % (0-10); NRBC Flagged by Analyzer 0 % (0-5); Neutrophil # 5.45 X10^3/uL (2.7-7.7); Neutrophil % 63.8 % (47-70); Platelet Count 271 K/mm3 (150-450); RBC Distribution Width CV 13.2 % (11.6-14.6); RBC Distribution Width SD 46.2 fl (35.1-43.9); Red Blood Count 4.54 M/mm3 (4.6-6.2); White Blood Count 8.5 K/mm3 (4.4-11.0)
[2021-12-13 17:45] LABS: ALB/GLOB Ratio 1.1 RATIO (0.9-2.4); AST(SGOT) 15 U/L (15-37); Alanine Aminotransfer ALT/SGPT 30 U/L (16-61); Albumin, Serum 3.8 g/dL (3.2-5.0); Alkaline Phosphatase 79 U/L (45-117); Anion Gap 9 (5-15); BUN 16 mg/dL (7-18); BUN/Creat Ratio 16.9 RATIO (10-20); Calcium,Total 9.3 mg/dL (8.5-10.1); Chloride 99 mmol/L (98-107); Creatinine, Serum 0.95 mg/dL (0.70-1.30); EST Glomerular Filtration Rate 86 mL/min (>60); Est Glom Filt Rate - Afr Amer 104 mL/min (>60); Globulin 3.6 g/dL (2.2-4.2); Glucose 85 mg/dL (74-106); Protein, Total 7.4 g/dL (6.4-8.2); Sodium Level 132 mmol/L (136-145)
[2021-12-13 17:54] LABS: Erythrocyte Sedimentation Rate 6 mm/hr (0-20)
== END 2021-12-13 23:59 | disposition short-term general hospital (02) ==
LOC: MTLAB 15:00
PROVIDERS: PCP Internal Medicine; Referring Provider Internal Medicine; Visit Provider Internal Medicine
DX: R10.84 Generalized abdominal pain (principal); R19.7 Diarrhea, unspecified
CPT/HCPCS: 36415; 80053; 85025; 85652

== ENCOUNTER 2021-12-14 07:43 | Outpatient (CLI) | payer OTHER, SELFPAY | END 2021-12-14 23:59 | disposition short-term general hospital (02) | PROVIDERS: PCP Internal Medicine; Referring Provider Internal Medicine; Visit Provider Internal Medicine | DX: R10.84 Generalized abdominal pain (principal); R19.7 Diarrhea, unspecified | CPT/HCPCS: 82274; 87177; 87209; 87493; 87506 ==

== ENCOUNTER → 2025-05-30 | Outpatient (CLI) | payer OTHER, SELFPAY ==
[2025-05-30 11:50] LABS: Hematocrit 42.4 % (40-54); Hemoglobin 14.8 g/dL (13.0-16.5); Immature Granulocytes Count 0.030 X10^3/uL (0.0-0.0); Mean Corp Hgb Conc 34.9 g/dL (32-36); Mean Corpuscular Volume 89.5 fL (80-94); Mean Platelet Vol. 9.2 fl (6.2-12.0); NRBC Flagged by Analyzer 0 % (0-5); Platelet Count 277 K/mm3 (150-450); RBC Distribution Width CV 13.4 % (11.6-14.6); RBC Distribution Width SD 44.4 fl (35.1-43.9); Red Blood Count 4.74 M/mm3 (4.6-6.2); White Blood Count 7.6 K/mm3 (4.4-11.0)
[2025-05-30 12:54] LABS: AST(SGOT) 22 U/L (<=37); Alanine Aminotransfer ALT/SGPT 16 U/L (<=46); Albumin, Serum 4.4 g/dL (3.4-4.8); Alkaline Phosphatase 101 U/L (40-129); Anion Gap 10 (5-15); BUN 10 mg/dL (4-19); BUN/Creat Ratio 11.8 RATIO (10-20); Calcium,Total 9.6 mg/dL (7.6-11.0); Carbon Dioxide 25.5 mmol/L (21.0-32.0); Chloride 97 mmol/L (98-108); Cholesterol 176 mg/dL (<=200); Globulin 2.8 g/dL (2.2-4.2); Glucose 93 mg/dL (70-99); Low Density Lipoprotein Calc. 106 mg/dL; Potassium 4.9 mmol/L (3.3-5.1); Triglycerides 61 mg/dL; Very Low Density Lipoprotein 12 mg/dL (5-40); cholesterol:hdl ratio screen 3.03
[2025-05-30 13:00] LABS: PSA,Total - Annual Screen 4.89 ng/mL (0.02-4.00); Vitamin D,25 Hydroxy 61.7 ng/mL (30-100)
== END | disposition home or self-care (01) ==
LOC: LAB 10:43
PROVIDERS: PCP Internal Medicine; Referring Provider Internal Medicine; Visit Provider Internal Medicine
DX: I48.91 Unspecified atrial fibrillation (principal); D75.1 Secondary polycythemia; E55.9 Vitamin D deficiency, unspecified; Z12.5 Encounter for screening for malignant neoplasm of prostate
CPT/HCPCS: 36415; 80053; 80061; 82306; 84153; 84443; 85025; G0103

== ENCOUNTER → 2025-07-05 | Outpatient (CLI) | payer OTHER, SELFPAY ==
--- NOTE | 2025-07-05 09:30 | CT_ITS ---
PROCEDURE: CHEST WITH CONTRAST 07/05/2025 REASON FOR EXAM: CONSOLIDATION/MASS SEEN ON CT SCAN TECHNIQUE: CHEST WITH CONTRAST Coronal and Sagittal reconstruction series were provided. CONTRAST: Isovue-300 VOLUME: 100 mL One or more dose reduction techniques were used (e.g., Automated exposure control, adjustment of the mA and/or kV according to patient size, use of iterative reconstruction technique). RADIATION DOSE SUMMARY: CTDlvol: 8.8 mGy DLP: 271.8 mGycm COMPARISON: Prior study dated June 27, 2025. FINDINGS: Hardware: None Lymph nodes: Small benign-appearing bilateral axillary lymph nodes. Small mediastinal lymph nodes. Heart and Vasculature: Mild coronary artery calcification. Lungs and Airways: Left hilar and left infrahilar pulmonary mass. This measures 5.1 cm by 1.1 cm. There is also evidence of focal peripheral infiltrate in the lateral aspect of the superior segment of the left lower lobe. A neoplastic process should be ruled out. Correlation with a PET scan is recommended. Pleura: No pleural effusion is seen. Upper Abdomen: 1 cm cyst is seen in the inferior lateral aspect of the right lobe of the liver. Bones: Mild degenerative changes of the thoracic spine. CT/Chest WITH Contrast IMPRESSION: Coronary artery calcification (CAC) is is present Left hilar and infrahilar mass as described. Peripheral infiltrate in the late ral aspect of the superior segment of the left lower lobe. Correlation with a PET scan recommended. Reading Location: [facility]
== END | disposition home or self-care (01) ==
LOC: CT 09:27
PROVIDERS: PCP Internal Medicine; Referring Provider Physician Assistant Medical; Visit Provider Physician Assistant Medical
DX: R91.1 Solitary pulmonary nodule (principal)
CPT/HCPCS: 71260; Q9967